=== PATIENT | male | born 1945 | race Caucasian/White ===

== ENCOUNTER 2019-09-23 09:51 | Emergency (ER) | payer OTHER ==
[~2019-09-23] VITALS: Ht 177.8 cm; Wt 77.1 kg
[~2019-09-23 09:51] MED LIST: ASPIRIN325 M2 PO; BRILINTA90 M1 PO; CO Q-1010 MG PO; COREG3.125 MG PO; ISOSORBIDE30 MG PO; NIASPAN1000 MG PO; NITROSTAT0.4 MG SL; RANEXA500 M1 PO; ULTRAM50 MG PO; VICO10300 PO; VITAMIN D5000 UNIT PO; ZITHROMAX Z PA250 MG PO
[2019-09-23 10:15] VITALS: BP 142/69
== END 2019-09-23 10:51 | disposition home or self-care (01) ==
LOC: ED 09:51
DX: T15.92XA Foreign body on external eye, part unspecified, left eye, initial encounter (principal); I25.2 Old myocardial infarction; E78.00 Pure hypercholesterolemia, unspecified; Z95.1 Presence of aortocoronary bypass graft; Z88.8 Allergy status to other drugs, medicaments and biological substances; Z79.899 Other long term (current) drug therapy; Z79.82 Long term (current) use of aspirin; X58.XXXA Exposure to other specified factors, initial encounter; Y93.89 Activity, other specified; Y92.89 Other specified places as the place of occurrence of the external cause; Y99.8 Other external cause status

== ENCOUNTER 2020-11-27 10:06 | Emergency (ER) | payer MEDICARE ==
[~2020-11-27] VITALS: Ht 177.8 cm; Wt 77.1 kg
[2020-11-27 10:20] VITALS: BP 93/61
[2020-11-27] MEDS ORDERED: PREDNISONE50 MG PO (13:26)
== END 2020-11-27 13:58 | disposition home or self-care (01) ==
LOC: ED 10:06
DX: S76.012A Strain of muscle, fascia and tendon of left hip, initial encounter (principal); S39.012A Strain of muscle, fascia and tendon of lower back, initial encounter; F17.210 Nicotine dependence, cigarettes, uncomplicated; Z95.5 Presence of coronary angioplasty implant and graft; Z79.899 Other long term (current) drug therapy; Z88.8 Allergy status to other drugs, medicaments and biological substances; Z79.82 Long term (current) use of aspirin; W17.89XA Other fall from one level to another, initial encounter; Y93.89 Activity, other specified; Y92.89 Other specified places as the place of occurrence of the external cause; Y99.8 Other external cause status

== ENCOUNTER 2021-05-14 16:34 | Emergency (ER) | payer MEDICARE ==
[~2021-05-14] VITALS: Ht 177.8 cm; Wt 75.3 kg
[~2021-05-14 16:34] MED LIST changes: +PREDNISONE50 MG PO
[2021-05-14 17:06] LABS: BASO % 0.5 % (0.0-1.0); EOS # 0.2 10*3/uL (0.0-0.4); EOS % 3.5 % (1.0-4.0); HEMATOCRIT 38.8 % (42.0-52.0); LYMPH # 2.9 10*3/uL (1.3-4.4); LYMPH % 43.7 % (27.0-41.0); MEAN CELL VOLUME 83.1 fl (80.0-94.0); MEAN CORPUSCULAR HGB 26.6 pg (27.0-31.0); MEAN PLATELET VOLUME 9.1 fl (9.6-12.3); MONO # 0.5 10*3/uL (0.1-1.0); MONO % 7.4 % (3.0-9.0); NEUT % 44.7 % (47.0-73.0); PLATELET COUNT AUTOMATED 198 10*3/uL (130-400); RED BLOOD COUNT 4.67 10*6/uL (4.50-5.90); RED CELL DISTRI WIDTH 16.9 % (0-14.5); WHITE BLOOD COUNT 6.6 10*3/uL (4.8-10.8)
[2021-05-14 17:17] LABS: ACT PARTIAL THROMBO TIME 29.3 SECONDS (20.0-32.1); INTERNATIONAL NORM RATIO 1.1 (2.0-3.5)
[2021-05-14 17:30] LABS: ALBUMIN 3.5 gm/dl (3.1-4.5); ALKALINE PHOSPHATASE 61 U/L (45-117); BUN 20 mg/dl (7-24); CHLORIDE 110 mmol/L (98-107); CREATININE 1.09 mg/dL (0.70-1.30); POTASSIUM 3.8 mmol/L (3.5-5.1); SGOT/AST 13 IU/L (3-35); SGPT/ALT 21 U/L (12-78); SODIUM 140 mmol/L (136-145); TOTAL PROTEIN 6.6 gm/dL (6.4-8.2)
[2021-05-14 19:41] VITALS: BP 138/72
== END 2021-05-14 19:48 | disposition short-term general hospital (02) ==
LOC: ED 16:34
PROVIDERS: Nurse Practitioner Family
DX: I21.4 Non-ST elevation (NSTEMI) myocardial infarction (principal); F17.210 Nicotine dependence, cigarettes, uncomplicated; Z88.8 Allergy status to other drugs, medicaments and biological substances; Z79.899 Other long term (current) drug therapy; Z79.82 Long term (current) use of aspirin; Z98.890 Other specified postprocedural states; Z95.1 Presence of aortocoronary bypass graft

== ENCOUNTER 2021-09-06 10:13 | Emergency (ER) | payer MEDICARE ==
[~2021-09-06] VITALS: Ht 177.8 cm; Wt 73.9 kg
[2021-09-06 10:20] VITALS: BP 160/88
[2021-09-07] MEDS ORDERED: CIPRO500 MG PO ×2 (11:51→11:54)
[2021-09-07] MEDS ORDERED: PYRIDIUM200 M1 PO (11:51)
== END 2021-09-06 14:19 | disposition left against medical advice (07) ==
LOC: ED 10:13
DX: R10.30 Lower abdominal pain, unspecified (principal); Z53.21 Procedure and treatment not carried out due to patient leaving prior to being seen by health care provider

== ENCOUNTER 2021-09-07 06:36 | Emergency (ER) | payer MEDICARE ==
[~2021-09-07] VITALS: Wt 73.9 kg
[2021-09-07 07:13] VITALS: BP 131/75
[2021-09-07 08:25] LABS: BASO % 0.4 % (0.0-1.0); EOS # 0.3 10*3/uL (0.0-0.4); EOS % 3.4 % (1.0-4.0); HEMATOCRIT 43.3 % (42.0-52.0); LYMPH # 1.6 10*3/uL (1.3-4.4); LYMPH % 18.5 % (27.0-41.0); MEAN CELL VOLUME 83.3 fl (80.0-94.0); MEAN CORPUSCULAR HGB 26.9 pg (27.0-31.0); MEAN CORPUSCULAR HGB CONC 32.3 g/dl (33.0-37.0); MEAN PLATELET VOLUME 8.9 fl (9.6-12.3); MONO # 0.8 10*3/uL (0.1-1.0); MONO % 8.9 % (3.0-9.0); NEUT # 5.8 10*3/uL (2.3-7.9); NEUT % 68.6 % (47.0-73.0); PLATELET COUNT AUTOMATED 177 10*3/uL (130-400); RED CELL DISTRI WIDTH 16.6 % (0-14.5); WHITE BLOOD COUNT 8.5 10*3/uL (4.8-10.8)
[2021-09-07 08:36] LABS: INTERNATIONAL NORM RATIO 1.1 (2.0-3.5)
[2021-09-07 08:51] LABS: ALKALINE PHOSPHATASE 70 U/L (45-117); BUN 17 mg/dl (7-24); CHLORIDE 111 mmol/L (98-107); CREATININE 1.14 mg/dL (0.70-1.30); LIPASE 112 U/L (73-393); POTASSIUM 4.2 mmol/L (3.5-5.1); SGOT/AST 11 IU/L (3-35); SGPT/ALT 16 U/L (12-78); SODIUM 141 mmol/L (136-145); TOTAL PROTEIN 6.8 gm/dL (6.4-8.2)
[2021-09-07 10:08] LABS: BILIRUBIN Negative (Negative); BLOOD Negative (Negative); CLARITY Clear (Clear); COLOR Yellow (Yellow); GLUCOSE Negative (Negative); KETONE Negative (Negative); LEUKO ESTERASE Negative (Negative); NITRITE Negative (Negative); PH 6.5 (4.5-8.0); SPECIFIC GRAVITY >= 1.030 (1.001-1.030)
[2021-09-07 10:18] LABS: RBC 0-2 rbc/hpf (0-2); WBC 0-2 wbc/hpf (0-5)
[2021-09-07] MEDS ORDERED: CIPRO500 MG PO ×2 (11:51→11:54)
[2021-09-07] MEDS ORDERED: PYRIDIUM200 M1 PO (11:51)
== END 2021-09-07 12:10 | disposition home or self-care (01) ==
LOC: ED 06:36
PROVIDERS: Emergency Medicine
DX: R10.9 Unspecified abdominal pain (principal); Z79.899 Other long term (current) drug therapy; Z79.82 Long term (current) use of aspirin; Z95.1 Presence of aortocoronary bypass graft; F17.210 Nicotine dependence, cigarettes, uncomplicated

== ENCOUNTER → 2023-03-27 | Outpatient (CLI) | payer MEDICARE ==
[~2023-03-27] MED LIST changes: +ATORVASTATIN CA40 M1 PO; +CIPRO500 MG PO; +MELOXICAM15 MG PO; +OMEPRAZOLE MAGN20 MG PO; +PRASUGREL HCL10 MG PO; +PYRIDIUM200 M1 PO; +TAMSULOSIN HCL0.4 MG PO; +TRAZODONE100 MG PO
[2023-03-27 10:24] LABS: BASO % 0.2 % (0.0-1.0); EOS # 0.1 10*3/uL (0.0-0.4); EOS % 0.9 % (1.0-4.0); HEMATOCRIT 43.7 % (42.0-52.0); LYMPH # 1.3 10*3/uL (1.3-4.4); LYMPH % 11.5 % (27.0-41.0); MEAN CORPUSCULAR HGB 27.4 pg (27.0-31.0); MEAN CORPUSCULAR HGB CONC 32.3 g/dl (33.0-37.0); MEAN PLATELET VOLUME 8.9 fl (9.6-12.3); MONO # 0.6 10*3/uL (0.1-1.0); NEUT # 9.6 10*3/uL (2.3-7.9); NEUT % 81.7 % (47.0-73.0); PLATELET COUNT AUTOMATED 214 10*3/uL (130-400); RED BLOOD COUNT 5.14 10*6/uL (4.50-5.90); RED CELL DISTRI WIDTH 17.4 % (0-14.5); WHITE BLOOD COUNT 11.7 10*3/uL (4.8-10.8)
== END | disposition home or self-care (01) ==
LOC: LAB 09:58
PROVIDERS: ATTEND Orthopaedic Surgery
DX: M54.50 Low back pain, unspecified (principal); R53.83 Other fatigue

== ENCOUNTER 2023-04-09 14:58 | Emergency (ER) | payer OTHER ==
[~2023-04-09] VITALS: Ht 177.8 cm
[2023-04-09 15:07] VITALS: BP 136/81
[2023-04-09] MEDS ORDERED: HYDROCODONE-AC1 EAC1 PO (15:09)
[2023-04-09 15:43] LABS: BASO % 0.1 % (0.0-1.0); EOS % 0.3 % (1.0-4.0); HEMATOCRIT 38.8 % (42.0-52.0); LYMPH # 0.8 10*3/uL (1.3-4.4); MEAN CELL VOLUME 84.5 fl (80.0-94.0); MEAN CORPUSCULAR HGB 26.6 pg (27.0-31.0); MEAN CORPUSCULAR HGB CONC 31.4 g/dl (33.0-37.0); MEAN PLATELET VOLUME 8.3 fl (9.6-12.3); MONO # 0.4 10*3/uL (0.1-1.0); MONO % 5.4 % (3.0-9.0); NEUT # 5.7 10*3/uL (2.3-7.9); NEUT % 82.3 % (47.0-73.0); PLATELET COUNT AUTOMATED 171 10*3/uL (130-400); RED BLOOD COUNT 4.59 10*6/uL (4.50-5.90); RED CELL DISTRI WIDTH 18.3 % (0-14.5); WHITE BLOOD COUNT 6.9 10*3/uL (4.8-10.8)
[2023-04-09 16:04] LABS: ALKALINE PHOSPHATASE 71 U/L (46-116); BUN 13 mg/dl (9-23); CHLORIDE 100 mmol/L (98-107); TOTAL PROTEIN 6.7 gm/dL (6.0-8.0)
[2023-04-09 16:06] LABS: SGPT/ALT < 7 U/L (5-49)
[2023-04-09] MEDS ORDERED: PREDNISONE20 M1 PO (17:22)
[2023-04-09] MEDS ORDERED: PROVENTIL HFA6.7 GM INH (17:22)
[2023-04-09] MEDS ORDERED: LEVOFLOXACIN750 M2 PO (17:22)
== END 2023-04-09 17:36 | disposition home or self-care (01) ==
LOC: ED 14:58
PROVIDERS: Emergency Medicine
DX: J44.1 Chronic obstructive pulmonary disease with (acute) exacerbation (principal); J18.9 Pneumonia, unspecified organism; M54.50 Low back pain, unspecified; I25.2 Old myocardial infarction; E78.00 Pure hypercholesterolemia, unspecified; Z88.8 Allergy status to other drugs, medicaments and biological substances; Z98.890 Other specified postprocedural states; Z95.5 Presence of coronary angioplasty implant and graft; F17.210 Nicotine dependence, cigarettes, uncomplicated; Z20.822 Contact with and (suspected) exposure to COVID-19

== ENCOUNTER → 2023-04-21 | Outpatient (CLI) | payer OTHER ==
[~2023-04-21] MED LIST changes: +HYDROCODONE-AC1 EAC1 PO; +LEVOFLOXACIN750 M2 PO; +PREDNISONE20 M1 PO; +PROVENTIL HFA6.7 GM INH
== END | disposition home or self-care (01) ==
LOC: NM 00:24
PROVIDERS: ATTEND Orthopaedic Surgery
DX: M47.898 Other spondylosis, sacral and sacrococcygeal region (principal)

== ENCOUNTER → 2023-04-26 | Outpatient (CLI) | payer OTHER ==
[2023-04-26] VITALS (8 sets, daily range): BP systolic 134–142; BP diastolic 68–79
[2023-04-26 12:47] LABS: ACT PARTIAL THROMBO TIME 27.3 SECONDS (20.0-32.1)
== END | disposition home or self-care (01) ==
LOC: RAD 13:00 → CT 14:00
PROVIDERS: Radiology Diagnostic Radiology; ATTEND Orthopaedic Surgery
DX: M47.896 Other spondylosis, lumbar region (principal); M54.50 Low back pain, unspecified; M48.061 Spinal stenosis, lumbar region without neurogenic claudication; M51.36 Other intervertebral disc degeneration, lumbar region; Z79.01 Long term (current) use of anticoagulants

== ENCOUNTER → 2023-05-01 | Outpatient (CLI) | payer OTHER ==
[2023-05-01 12:01] LABS: BASO % 0.3 % (0.0-1.0); EOS # 0.1 10*3/uL (0.0-0.4); HEMATOCRIT 45.9 % (42.0-52.0); LYMPH # 1.3 10*3/uL (1.3-4.4); LYMPH % 21.5 % (27.0-41.0); MEAN CELL VOLUME 87.6 fl (80.0-94.0); MEAN CORPUSCULAR HGB 27.5 pg (27.0-31.0); MEAN CORPUSCULAR HGB CONC 31.4 g/dl (33.0-37.0); MEAN PLATELET VOLUME 8.5 fl (9.6-12.3); MONO # 0.4 10*3/uL (0.1-1.0); MONO % 7.1 % (3.0-9.0); NEUT # 4.1 10*3/uL (2.3-7.9); NEUT % 69.4 % (47.0-73.0); PLATELET COUNT AUTOMATED 162 10*3/uL (130-400); RED BLOOD COUNT 5.24 10*6/uL (4.50-5.90); RED CELL DISTRI WIDTH 21.8 % (0-14.5); WHITE BLOOD COUNT 5.9 10*3/uL (4.8-10.8)
== END | disposition home or self-care (01) ==
LOC: LAB 11:19
PROVIDERS: ATTEND Orthopaedic Surgery
DX: M54.50 Low back pain, unspecified (principal); M47.896 Other spondylosis, lumbar region